=== PATIENT | male | born 1945 | race Caucasian/White ===

== ENCOUNTER 2022-07-14 11:57 | Inpatient (IN) | payer OTHER, MEDICAID ==
[~2022-07-14] VITALS: Ht 165.1 cm; Wt 61.2 kg
[~2022-07-14 11:57] MED LIST: ATENOLOL; NAPROXEN; RISP0.2516 PO
[2022-07-14 12:07] VITALS: BP_SYST 95
[2022-07-14] MEDS ORDERED: NACL 0.9% 1,000 ML IV ONE (13:30)
[2022-07-14 13:38] LABS: BASOPHILS % (AUTO) 0.2 % (0.0-2.0); EOSINOPHILS # (AUTO) 0.1 K/uL (0.0-0.4); EOSINOPHILS % (AUTO) 0.3 % (0.0-4.0); HEMATOCRIT 41.1 % (36-54); HEMOGLOBIN 12.4 g/dL (14.0-18.0); LYMPHOCYTES # (AUTO) 0.9 K/uL (1.0-5.5); LYMPHOCYTES % (AUTO) 4.1 % (20.5-51.5); MEAN CORPUSCULAR HEMOGLOBIN 33 pg (27-31); MEAN CORPUSCULAR HGB CONC 30 % (32-36); MEAN CORPUSCULAR VOLUME 109 fL (79.0-98.0); MONOCYTES # (AUTO) 0.5 K/uL (0.0-1.0); MONOCYTES % (AUTO) 2.3 % (1.7-9.3); NEUTROPHILS # (AUTO) 20.6 K/uL (1.8-7.7); NEUTROPHILS % (AUTO) 93.1 % (40.0-70.0); PLATELET COUNT (AUTO) 166 K/uL (130-430); RED BLOOD CELL COUNT(AUTO) 3.77 MIL/uL (4.2-6.2); RED CELL DISTRIBUTION WIDTH 16.5 % (9.0-15.0); WHITE BLOOD COUNT (AUTO) 22.1 K/uL (4.8-10.8)
[2022-07-14 14:37] LABS: INR 1.1 (0.80-1.20); PROTHROMBIN TIME 11.7 SECS (9.5-12.5)
[2022-07-14 14:51] LABS: ALANINE AMINOTRANSFERASE 52 U/L (12-78); ANION GAP 13 (5-15); ASPARTATE AMINOTRANSFERASE 19 U/L (10-37); CALCIUM 9.9 mg/dL (8.4-11.0); CREATININE 1.81 mg/dL (0.55-1.30); TOTAL BILIRUBIN 0.2 mg/dL (0.0-1.0)
[2022-07-14 15:04] LABS: CHLORIDE 127 mmol/L (98-107)
[2022-07-14 15:05] LABS: GLUCOSE 750 mg/dL (70-99); UREA NITROGEN, BLOOD 177 mg/dL (8-21)
[2022-07-14 15:08] LABS: BILIRUBIN,URINE NEGATIVE (NEGATIVE); BLOOD, URINE NEGATIVE (NEGATIVE); CLARITY/URINE CLEAR (CLEAR); COLOR,URINE YELLOW (YELLOW); GLUCOSE,URINE 1+ (NEGATIVE); KETONES,URINE NEGATIVE (NEGATIVE); LEUKOCYTE ESTERASE ,URINE TRACE (NEGATIVE); NITRITE, URINE POSITIVE (NEGATIVE); PROTEIN URINE NEGATIVE (NEGATIVE); UROBILINOGEN,URINE 0.2 (0.2-1.0)
[2022-07-14 15:20] LABS: BACTERIA,URINE MODERATE /HPF (None Seen); HYALINE CASTS, URINE 0-10 /LPF (None Seen); MUCUS,URINE 1+ /LPF (None Seen); RBC,URINE 0-3 /HPF (0-3)
[2022-07-14] MEDS ORDERED: LR 1,000 ML IV ONE ×2 (15:30→15:45)
[2022-07-14] MEDS ORDERED: PIPERACILLIN/TAZO 3.375 GM in NS 50 ML IV ONE (16:00)
[2022-07-14] MEDS ORDERED: LORazepam 2 MG/ML VIAL IVP ONE (16:00)
[2022-07-14] MEDS ORDERED: PIPERACILLIN/TAZOBACTAM 3.375 GM/VIAL (ZOSYN) IV ONE (16:02)
[2022-07-14] MEDS: 0.45% NACL 1,000 ML IV SCH (19:00)
[2022-07-14] MEDS ORDERED: INSULIN REGULAR, HUMAN 100 UNITS/ML, 3 ML VIAL SUBCUT ONE (19:00)
[2022-07-14 20:00] VITALS: BP_SYST 98
[2022-07-15] VITALS: BP_SYST 109
[2022-07-15] MEDS: 0.45% NACL 1,000 ML IV SCH (03:11)
[2022-07-15] MEDS ORDERED: DEXTROSE 50% JECT 50 ML DISP.SYRIN ONE (04:14)
[2022-07-15] MEDS ORDERED: GLUCOSE (DEXTROSE) ORAL GEL -Adults PO PRN (04:15)
[2022-07-15] MEDS: DEXTROSE 50% JECT 50 ML DISP.SYRIN IVP PRN ×2 (04:15→05:59)
[2022-07-15] MEDS ORDERED: D5W 1,000 ML IV PRN (04:15)
[2022-07-15] MEDS ORDERED: D5/0.45 NS 1,000 ML IV SCH (04:45)
[2022-07-15 08:00] VITALS: BP_SYST 103
[2022-07-15 08:13] LABS: HEMATOCRIT 32.9 % (36-54); HEMOGLOBIN 10.8 g/dL (14.0-18.0); MEAN CORPUSCULAR HEMOGLOBIN 34 pg (27-31); MEAN CORPUSCULAR HGB CONC 33 % (32-36); MEAN CORPUSCULAR VOLUME 104 fL (79.0-98.0); PLATELET COUNT (AUTO) 140 K/uL (130-430); RED BLOOD CELL COUNT(AUTO) 3.16 MIL/uL (4.2-6.2); RED CELL DISTRIBUTION WIDTH 14.5 % (9.0-15.0)
[2022-07-15 08:32] LABS: ALANINE AMINOTRANSFERASE 43 U/L (12-78); ALBUMIN 1.8 g/dL (3.4-4.8); ANION GAP 11 (5-15); ASPARTATE AMINOTRANSFERASE 20 U/L (10-37); CALCIUM 9.2 mg/dL (8.4-11.0); CREATININE 1.37 mg/dL (0.55-1.30); GLUCOSE 100 mg/dL (70-99); TOTAL BILIRUBIN 0.3 mg/dL (0.0-1.0)
[2022-07-15 09:27] LABS: CHLORIDE 133 mmol/L (98-107)
[2022-07-15 09:28] LABS: UREA NITROGEN, BLOOD 140 mg/dL (8-21)
[2022-07-15] MEDS ORDERED: levalbuterol HCL 0.63 MG/3 ML VIAL.NEB INH PRN (09:45)
[2022-07-15 10:26] VITALS: BP_SYST 103
[2022-07-15 11:34] VITALS: BP_SYST 101
[2022-07-15 11:39] LABS: BAND % (MANUAL) 19 % (0-6); BASOPHILS % (MANUAL) 0 % (0-2); EOSINOPHILS % (MANUAL) 0 % (0-7); LYMPHOCYTES % (MANUAL) 4 % (20-46); MONOCYTES % (MANUAL) 4 % (0-11)
[2022-07-15] MEDS: AZITHROMYCIN 500 MG in NS 250 ML IV SCH (12:27)
[2022-07-15] MEDS ORDERED: cefTRIAXone 1 GM IVPB PREMIX 50 ML IV SCH (13:00)
[2022-07-15 15:37] VITALS: BP_SYST 91
[2022-07-15] MEDS: D5/0.45 NS 1,000 ML IV SCH ×2 (16:41→23:55)
[2022-07-15] MEDS: PIPERACILLIN/TAZO 2.25G/DEX-IS 50 ML IV SCH (17:41)
[2022-07-15] MEDS: INSULIN REGULAR, HUMAN 100 UNITS/ML, 3 ML VIAL (humuLIN R) SUBCUT PRN (17:50)
[2022-07-15] MEDS: risperiDONE 0.25 MG TABLET (RisperDAL) PO SCH (22:15)
[2022-07-16] MEDS ORDERED: LORazepam 2 MG/ML VIAL IVP PRN
[2022-07-16] MEDS ORDERED: LORazepam 2 MG/ML VIAL ONE (00:09)
[2022-07-16] MEDS: PIPERACILLIN/TAZO 2.25G/DEX-IS 50 ML IV SCH ×4 (00:44→18:25)
[2022-07-16] MEDS: INSULIN REGULAR, HUMAN 100 UNITS/ML, 3 ML VIAL (humuLIN R) SUBCUT PRN ×3 (06:40→18:27)
[2022-07-16 07:13] LABS: BASOPHILS % (AUTO) 0.3 % (0.0-2.0); EOSINOPHILS # (AUTO) 0.2 K/uL (0.0-0.4); EOSINOPHILS % (AUTO) 1.2 % (0.0-4.0); HEMATOCRIT 32.3 % (36-54); HEMOGLOBIN 10.5 g/dL (14.0-18.0); LYMPHOCYTES # (AUTO) 1.3 K/uL (1.0-5.5); LYMPHOCYTES % (AUTO) 8.1 % (20.5-51.5); MEAN CORPUSCULAR HEMOGLOBIN 34 pg (27-31); MEAN CORPUSCULAR HGB CONC 33 % (32-36); MEAN CORPUSCULAR VOLUME 104 fL (79.0-98.0); MONOCYTES # (AUTO) 0.4 K/uL (0.0-1.0); MONOCYTES % (AUTO) 2.3 % (1.7-9.3); NEUTROPHILS # (AUTO) 14.6 K/uL (1.8-7.7); NEUTROPHILS % (AUTO) 88.1 % (40.0-70.0); PLATELET COUNT (AUTO) 107 K/uL (130-430); RED BLOOD CELL COUNT(AUTO) 3.12 MIL/uL (4.2-6.2); RED CELL DISTRIBUTION WIDTH 14.5 % (9.0-15.0); WHITE BLOOD COUNT (AUTO) 16.5 K/uL (4.8-10.8)
[2022-07-16 07:28] LABS: ANION GAP 11 (5-15); CALCIUM 9.1 mg/dL (8.4-11.0); CREATININE 1.42 mg/dL (0.55-1.30); GLUCOSE 214 mg/dL (70-99)
[2022-07-16 08:16] VITALS: BP_SYST 98
[2022-07-16 08:34] LABS: CHLORIDE 131 mmol/L (98-107); UREA NITROGEN, BLOOD 118 mg/dL (8-21)
[2022-07-16] MEDS: D5/0.45 NS 1,000 ML IV SCH (11:13)
[2022-07-16] MEDS: AZITHROMYCIN 500 MG in NS 250 ML IV SCH (11:14)
[2022-07-16 11:23] VITALS: BP_SYST 106
[2022-07-16 15:17] VITALS: BP_SYST 100
[2022-07-16] MEDS: D5W 1,000 ML IV SCH (20:00)
[2022-07-16] MEDS: risperiDONE 0.25 MG TABLET (RisperDAL) PO SCH (21:00)
[2022-07-17 00:38] VITALS: BP_SYST 98
[2022-07-17] MEDS: D5W 1,000 ML IV SCH ×3 (06:13→23:56)
[2022-07-17] MEDS: PIPERACILLIN/TAZO 2.25G/DEX-IS 50 ML IV SCH ×5 (06:22→23:56)
[2022-07-17] MEDS: INSULIN REGULAR, HUMAN 100 UNITS/ML, 3 ML VIAL (humuLIN R) SUBCUT PRN ×2 (06:23→18:12)
[2022-07-17 06:40] LABS: BASOPHILS # (AUTO) 0.1 K/uL (0.0-0.2); BASOPHILS % (AUTO) 0.9 % (0.0-2.0); EOSINOPHILS # (AUTO) 0.2 K/uL (0.0-0.4); EOSINOPHILS % (AUTO) 1.5 % (0.0-4.0); HEMATOCRIT 30.7 % (36-54); HEMOGLOBIN 9.9 g/dL (14.0-18.0); MEAN CORPUSCULAR HEMOGLOBIN 33 pg (27-31); MEAN CORPUSCULAR HGB CONC 32 % (32-36); MEAN CORPUSCULAR VOLUME 104 fL (79.0-98.0); MONOCYTES # (AUTO) 0.3 K/uL (0.0-1.0); MONOCYTES % (AUTO) 2.3 % (1.7-9.3); NEUTROPHILS # (AUTO) 12.8 K/uL (1.8-7.7); NEUTROPHILS % (AUTO) 88.3 % (40.0-70.0); PLATELET COUNT (AUTO) 106 K/uL (130-430); RED BLOOD CELL COUNT(AUTO) 2.96 MIL/uL (4.2-6.2); RED CELL DISTRIBUTION WIDTH 15.1 % (9.0-15.0); WHITE BLOOD COUNT (AUTO) 14.5 K/uL (4.8-10.8)
[2022-07-17 06:59] LABS: CALCIUM 8.7 mg/dL (8.4-11.0); CREATININE 1.45 mg/dL (0.55-1.30); GLUCOSE 212 mg/dL (70-99); PHOSPHORUS 3.9 mg/dL (2.7-4.5); UREA NITROGEN, BLOOD 97 mg/dL (8-21)
[2022-07-17 08:07] LABS: CHLORIDE 130 mmol/L (98-107)
[2022-07-17 08:08] LABS: ANION GAP 9 (5-15)
[2022-07-17 11:36] VITALS: BP_SYST 90
[2022-07-17] MEDS: AZITHROMYCIN 500 MG in NS 250 ML IV SCH (11:45)
[2022-07-17 15:32] VITALS: BP_SYST 100
[2022-07-17 20:00] VITALS: BP_SYST 103
[2022-07-17] MEDS: risperiDONE 0.25 MG TABLET (RisperDAL) PO SCH (20:34)
[2022-07-18] VITALS: BP_SYST 101
[2022-07-18] MEDS: D5W 1,000 ML IV SCH ×4 (03:30→17:24)
[2022-07-18] MEDS: PIPERACILLIN/TAZO 2.25G/DEX-IS 50 ML IV SCH ×3 (04:27→17:26)
[2022-07-18 08:46] LABS: BASOPHILS % (AUTO) 0.2 % (0.0-2.0); EOSINOPHILS # (AUTO) 0.3 K/uL (0.0-0.4); EOSINOPHILS % (AUTO) 2.2 % (0.0-4.0); HEMATOCRIT 32.2 % (36-54); HEMOGLOBIN 10.2 g/dL (14.0-18.0); LYMPHOCYTES # (AUTO) 1.2 K/uL (1.0-5.5); LYMPHOCYTES % (AUTO) 9.5 % (20.5-51.5); MEAN CORPUSCULAR HEMOGLOBIN 33 pg (27-31); MEAN CORPUSCULAR HGB CONC 32 % (32-36); MEAN CORPUSCULAR VOLUME 105 fL (79.0-98.0); MONOCYTES # (AUTO) 0.3 K/uL (0.0-1.0); MONOCYTES % (AUTO) 2.4 % (1.7-9.3); NEUTROPHILS # (AUTO) 10.7 K/uL (1.8-7.7); NEUTROPHILS % (AUTO) 85.7 % (40.0-70.0); PLATELET COUNT (AUTO) 98 K/uL (130-430); RED BLOOD CELL COUNT(AUTO) 3.07 MIL/uL (4.2-6.2); RED CELL DISTRIBUTION WIDTH 15.6 % (9.0-15.0); WHITE BLOOD COUNT (AUTO) 12.5 K/uL (4.8-10.8)
[2022-07-18 09:00] LABS: UREA NITROGEN, BLOOD 75 mg/dL (8-21)
[2022-07-18 09:25] VITALS: BP_SYST 157
[2022-07-18 10:21] LABS: CALCIUM 8.9 mg/dL (8.4-11.0); CREATININE 1.46 mg/dL (0.55-1.30); GLUCOSE 105 mg/dL (70-99)
[2022-07-18 10:50] LABS: ANION GAP 13 (5-15); CHLORIDE 125 mmol/L (98-107)
[2022-07-18 11:51] VITALS: BP_SYST 96
[2022-07-18] MEDS: INSULIN REGULAR, HUMAN 100 UNITS/ML, 3 ML VIAL (humuLIN R) SUBCUT PRN ×2 (13:01→17:28)
[2022-07-18] MEDS: AZITHROMYCIN 500 MG in NS 250 ML IV SCH (13:03)
[2022-07-18 17:07] VITALS: BP_SYST 93
[2022-07-18 20:00] VITALS: BP_SYST 140
[2022-07-18] MEDS: risperiDONE 0.25 MG TABLET (RisperDAL) PO SCH (21:08)
[2022-07-18] MEDS: cefTRIAXone 1 GM in D5W 50 ML IV SCH (23:19)
[2022-07-19] VITALS (7 sets, daily range): BP systolic 91–120
[2022-07-19] MEDS: D5W 1,000 ML IV SCH ×2 (06:28→13:08)
[2022-07-19 07:05] LABS: BASOPHILS % (AUTO) 0.2 % (0.0-2.0); EOSINOPHILS # (AUTO) 0.1 K/uL (0.0-0.4); HEMOGLOBIN 9.5 g/dL (14.0-18.0); LYMPHOCYTES # (AUTO) 0.7 K/uL (1.0-5.5); LYMPHOCYTES % (AUTO) 4.7 % (20.5-51.5); MEAN CORPUSCULAR HEMOGLOBIN 33 pg (27-31); MEAN CORPUSCULAR HGB CONC 33 % (32-36); MEAN CORPUSCULAR VOLUME 101 fL (79.0-98.0); MONOCYTES # (AUTO) 0.2 K/uL (0.0-1.0); MONOCYTES % (AUTO) 1.6 % (1.7-9.3); NEUTROPHILS # (AUTO) 13.1 K/uL (1.8-7.7); PLATELET COUNT (AUTO) 98 K/uL (130-430); RED BLOOD CELL COUNT(AUTO) 2.89 MIL/uL (4.2-6.2); WHITE BLOOD COUNT (AUTO) 14.2 K/uL (4.8-10.8)
[2022-07-19 07:36] LABS: ANION GAP 8 (5-15); CALCIUM 8.3 mg/dL (8.4-11.0); CREATININE 1.42 mg/dL (0.55-1.30); GLUCOSE 168 mg/dL (70-99); UREA NITROGEN, BLOOD 57 mg/dL (8-21)
[2022-07-19 07:46] LABS: CHLORIDE 120 mmol/L (98-107)
[2022-07-19 08:17] LABS: NEUTROPHILS % (AUTO) 92.5 % (40.0-70.0)
[2022-07-19] MEDS: AZITHROMYCIN 500 MG in NS 250 ML IV SCH (12:14)
[2022-07-19 21:32] LABS: URINE SODIUM, RANDOM 88 mmol/L (40-220)
[2022-07-19] MEDS: risperiDONE 0.25 MG TABLET (RisperDAL) PO SCH (21:40)
[2022-07-19] MEDS: cefTRIAXone 1 GM in D5W 50 ML IV SCH (23:30)
[2022-07-20 00:45] VITALS: BP_SYST 124
[2022-07-20] MEDS: D5W 1,000 ML IV SCH (03:08)
[2022-07-20 08:06] LABS: MICROALBUMIN URINE RANDOM 26.6 ug/mL (Not Estab.)
== END 2022-07-20 05:20 | DRG 871 ==
LOC: SED 11:57 → STU 16:09 → SMU 07-16 00:09
PROVIDERS: ADMIT Internal Medicine; ATTEND Internal Medicine
PROC: 5A12012 Performance of Cardiac Output, Single, Manual (ICD-10-PCS; principal; 2022-07-20)
PROC: 0BH17EZ Insertion of Endotracheal Airway into Trachea, Via Natural or Artificial Opening (ICD-10-PCS; 2022-07-20)
DX: A41.9 Sepsis, unspecified organism (principal); E43 Unspecified severe protein-calorie malnutrition; G93.41 Metabolic encephalopathy; L89.154 Pressure ulcer of sacral region, stage 4; L89.323 Pressure ulcer of left buttock, stage 3; J69.0 Pneumonitis due to inhalation of food and vomit; J96.90 Respiratory failure, unspecified, unspecified whether with hypoxia or hypercapnia; N17.9 Acute kidney failure, unspecified; E87.0 Hyperosmolality and hypernatremia; I48.20 Chronic atrial fibrillation, unspecified; E86.0 Dehydration; Z20.822 Contact with and (suspected) exposure to COVID-19; I10 Essential (primary) hypertension; F03.90 Unspecified dementia, unspecified severity, without behavioral disturbance, psychotic disturbance, mood disturbance, and anxiety; E11.65 Type 2 diabetes mellitus with hyperglycemia; R62.7 Adult failure to thrive; D69.6 Thrombocytopenia, unspecified; I46.9 Cardiac arrest, cause unspecified; E11.51 Type 2 diabetes mellitus with diabetic peripheral angiopathy without gangrene; M19.90 Unspecified osteoarthritis, unspecified site; Z86.73 Personal history of transient ischemic attack (TIA), and cerebral infarction without residual deficits; Z68.22 Body mass index [BMI] 22.0-22.9, adult; Z79.899 Other long term (current) drug therapy; Z74.01 Bed confinement status
CPT/HCPCS: 36415; 36600; 70450-TC; 71045; 76376; 76770; 80048; 80053; 81000; 82043; 82570; 82803-TC; 83037; 83605; 83735; 84100; 84302; 84484; 85007; 85025; 85027; 85610-TC; 85730-TC; 87040; 87081; 87086; 92610-GN; 92950; 93005; 93306; 96361; 96365; 96375; 99291; 99292; G0378; J0456; J0696; J1815; J2060; J2543; J7050; J7060